=== PATIENT | female | born 1970 | race Caucasian/White ===

== ENCOUNTER 2024-12-31 02:41 | Emergency (ER) | payer SELFPAY ==
[~2024-12-31] VITALS: Ht 157.5 cm; Wt 88.0 kg
[2024-12-31 03:05] VITALS: O2SAT 97
[2024-12-31] MEDS: LIDOCAINE HCL 1% 20ML VIAL INFIL ONE (04:14)
[2024-12-31] MEDS: ACETAMINOPHEN 325MG TABLET PO ONE (04:14)
[2024-12-31] MEDS: BACITRACIN ZINC OINT UDPKT TOP ONE (04:14)
[2024-12-31] MEDS: TETANUS, DIPHTHERIA, PERTUSSIS VAC/PF 0.5ML (>10YR OLD) IM ONE (04:16)
[2024-12-31] MEDS ORDERED: BO1 TP (05:04)
[2024-12-31] MEDS ORDERED: CEPH500C2 MT (05:04)
[2024-12-31] MEDS ORDERED: IBUP-1455 MT (05:04)
[2024-12-31 05:49] VITALS: BP 148/81; PULSE 79; RESP 18; TEMP 36.8; O2SAT 98
== END 2024-12-31 05:56 | disposition home or self-care (01) ==
LOC: ER 02:41
DX: S61.412A Laceration without foreign body of left hand, initial encounter (principal); Z79.899 Other long term (current) drug therapy; W19.XXXA Unspecified fall, initial encounter; W25.XXXA Contact with sharp glass, initial encounter; Y93.89 Activity, other specified; Y92.89 Other specified places as the place of occurrence of the external cause; Y99.8 Other external cause status
CPT/HCPCS: 73130; 90715; 12002; 90471; 99283; J2003; Z7610